=== PATIENT | female | born 1980 | race Caucasian/White ===

== ENCOUNTER 2020-02-20 09:57 | Outpatient (CLI) | payer OTHER, SELFPAY ==
[2020-02-20 10:14] LABS: Basophils Absolute Auto 0.02 K/mm3 (0.00-0.10); Basophils Percent Auto 0.5 % (0.0-1.0); Eosinophils Absolute Auto 0.06 K/mm3 (0.02-0.50); Eosinophils Percent Auto 1.4 % (1.0-6.0); Hematocrit 42.8 % (35.0-49.0); Hemoglobin 14.8 g/dL (12.0-15.0); Immature Granulocyte Absolute 0.01 K/mm3 (0.00-0.00); Immature Granulocyte Percent A 0.2 % (0.0-0.0); Lymphocytes Absolute Auto 2.14 K/mm3 (1.10-4.50); Lymphocytes Percent Auto 49.4 % (18.0-42.0); Mean Corpuscular HGB Conc 34.6 g/dL (32.0-36.0); Mean Corpuscular Volume 95.5 fL (78.0-102.0); Mean Platelet Volume 9.9 fl (9.2-11.8); Monocytes Absolute Auto 0.28 K/mm3 (0.10-0.90); Monocytes Percent Auto 6.5 % (2.0-11.0); Neutrophils Absolute Auto 1.8 K/mm3 (1.7-7.2); Platelet Count Result 218 K/mm3 (150-420); Red Blood Count 4.48 M/mm3 (4.20-5.40); Red Cell Distribution Width 11.9 % (11.6-14.4); White Blood Count 4.3 K/mm3 (4.8-10.8)
[2020-02-20 11:29] LABS: Free T4 Free Thyroxine 0.81 ng/dL (0.76-1.46); Lactate Dehydrogenase 180 U/L (81-234); Thyroid Stimulating Hormone 2.87 uIU/mL (0.36-3.74); Vitamin B12 1179 pg/mL (193-986)
[2020-02-22 22:04] LABS: Vitamin D 25 Hydroxy 37 ng/mL (30-100)
== END 2020-02-20 09:58 | disposition home or self-care (01) ==
LOC: CHSLAB 10:03
PROVIDERS: PCP Internal Medicine; Visit Provider Nurse Practitioner
DX: Z85.43 Personal history of malignant neoplasm of ovary (principal); R53.83 Other fatigue; E55.9 Vitamin D deficiency, unspecified
CPT/HCPCS: 36415; 82306; 82607; 83615; 84439; 84443; 85025

== ENCOUNTER 2020-04-30 14:53 | Outpatient (CLI) | payer OTHER, SELFPAY ==
[2020-04-30 16:32] LABS: SARS-CoV-2 Ag Negative (Negative)
== END 2020-04-30 14:54 | disposition home or self-care (01) ==
LOC: CHSLAB 14:58
PROVIDERS: PCP Internal Medicine; Visit Provider Internal Medicine
DX: Z20.828 Contact with and (suspected) exposure to other viral communicable diseases (principal)
CPT/HCPCS: 87426

== ENCOUNTER 2020-07-24 08:42 | Outpatient (CLI) | payer OTHER, SELFPAY ==
--- NOTE | ~2020-07-24 | CT_ITS ---
EXAMINATION: CT abdomen pelvis w con EXAM DATE: 07/24/2020 09:13 INDICATION: Abdominal pain. Check endometriosis. History of ovarian cancer with chemotherapy. TECHNIQUE: Spiral CT of the abdomen and pelvis was performed following intravenous injection of 100 m L Omnipaque 350. Axial, coronal and sagittal images were reviewed. The dose-length product (DLP) fo r this examination was 496.49 mGy-cm. The exposure was tailored according to patient size (auto mA e xposure control), and iterative reconstruction (ASIR) was used as additional dose reduction technique . Comparison is made to prior examination from 05/05/2019. FINDINGS: There is mild to moderate sigmoid diverticulosis. There is inflammation and mild wall thick ening along a short segment of sigmoid colon. This most likely acute uncomplicated diverticulitis. In flammatory cancer or endometriosis implants not excludable. Consider treating and obtaining one-month follow-up CT. The liver, spleen, adrenal glands and pancreas are unremarkable. Gallbladder is unremarkable. No bi liary obstruction. Portal and splenic veins are patent. Kidneys enhance symmetrically. There is no hydronephrosis. The uterus is retroverted and small density along the anterior myometrium, probabl y small fibroids. The bladder is unremarkable. There is no retroperitoneal or pelvic lymphadenopat hy. The appendix is normal. The stomach and small bowel are unremarkable. There is expected amount of c olonic stool. No free intraperitoneal gas. The heart is normal in size. There are no pericardial or pleural effusions. The lung bases are unremarkable. There are no osteoblastic or osteolytic les ions identified. IMPRESSION: 1. Perisigmoid inflammation most likely acute uncomplicated diverticulitis. Recommend treating and o btaining one-month follow-up to exclude less likely possibilities of adenocarcinoma or endometriosis implants. 2. No evidence of metastatic disease. 3. Probable small fibroid. I discussed this case with Matias Palacios MD at 07/24/2020 10:24 SENIOR QA AUTOMATION ENGINEER. Reviewed, dictated and finalized at location B. OR QA AUTOMATION ENGINEER IMPRESSION: 1. Perisigmoid inflammation most likely acute uncomplicated diverticulitis. Re commend treating and obtaining one-month follow-up to exclude less likely possi bilities of adenocarcinoma or endometriosis implants. 2. No evidence of metastatic disease. 3. Probable small fibroid. I discussed this case with Matias Palacios MD at 07/24/2020 10:24 SENIOR QA AUTOMATION ENGINEER.
== END 2020-07-24 08:43 | disposition home or self-care (01) ==
LOC: CHSIMG 08:43
PROVIDERS: PCP Internal Medicine; Visit Provider Internal Medicine
DX: R10.9 Unspecified abdominal pain (principal)
CPT/HCPCS: 74177; Q9967

== ENCOUNTER 2020-07-30 09:23 | Outpatient (CLI) | payer OTHER, SELFPAY ==
--- NOTE | ~2020-07-30 | US_ITS ---
EXAMINATION: US pelvic complete w TV EXAM DATE: 07/30/2020 10:55 INDICATION: Pelvic pain; post menopausal pain. TECHNIQUE: Pelvic transabdominal and transvaginal sonogram was performed. There are multiple graysca le and Doppler images available for interpretation. Comparison is made to prior examination from 05/05. FINDINGS: Uterus measures 5.3 x 3.1 x 4.5 cm, with several small regions probably fibroids measuring up to 1.1 cm. Endometrial stripe measures 3 mm, within normal limits. There is no free pelvic fluid . Right adnexa: The ovary is not identified. There is no adnexal mass. Left adnexa: The ovary measures 1.3 x 0.7 x 1.1 cm and is morphologically normal. Ovarian vascular fl ow confirmed. IMPRESSION: Probable small fibroids. Reviewed, dictated and finalized at location A. T BUYING GRADER IMPRESSION: Probable small fibroids.
== END 2020-07-30 09:24 | disposition home or self-care (01) ==
LOC: CHSIMG 09:25
PROVIDERS: PCP Internal Medicine; Visit Provider Nurse Practitioner
DX: N95.0 Postmenopausal bleeding (principal)
CPT/HCPCS: 76830; 76856

== ENCOUNTER → 2020-09-28 01:39 | Outpatient (CLI) | payer OTHER, SELFPAY ==
[2020-09-28 19:16] LABS: SARS-CoV-2 RNA PCR Negative
== END ==
PROVIDERS: PCP Internal Medicine; Visit Provider Internal Medicine Gastroenterology
DX: Z01.812 Encounter for preprocedural laboratory examination (principal); Z20.822 Contact with and (suspected) exposure to COVID-19
CPT/HCPCS: C9803; U0003; U0005

== ENCOUNTER 2020-10-01 00:31 | Day surgery (SDC) | payer OTHER, SELFPAY ==
[2020-09-18 15:57] VITALS: BMI 25.4
[2020-10-01 08:20] VITALS: BP 129/84; PULSE 74; RESP 16; TEMP 36.4; O2SAT 100; BMI 25.1
[2020-10-01] MEDS: LACTATED RINGERS 1,000 ML 150 ML IV CONT (08:44)
--- NOTE | 2020-10-01 08:55 | P.PNAN_ITS ---
Anes - Initial Pre Proc Eval Procedure: Operation Date: 10/01/20 09:45 Proposed Procedures p Colonoscopy - Andrade Guzmán MD Date/Time: 10/01/20 08:55 Surgeon: Andrade Guzmán MD Pre Op Diagnosis: abd pain, diarrhea, abn ct scan Patient Data Age: 40 Gender: F Height: 1.6 m Weight: 64.4 kg Last Vital Signs Temp 36.4 C 10/01/20 08:20 Pulse 74 10/01/20 08:20 Resp 16 10/01/20 08:20 BP 129/84 10/01/20 08:20 Pulse Ox 100 10/01/20 08:20 Allergies Allergy/AdvReac Type Severity Reaction Status Date / Time propoxyphene AdvReac Intermediate Vomiting Verified 10/01/20 08:18 [facility] Home Medications Medication Instructions Recorded Confirmed Type Daily Fiber (psyllium-aspart) 5 tab-cap PO DAILY 09/18/20 10/01/20 History ergocalciferol (vitamin D2) 1,250 mcg PO WE 09/18/20 10/01/20 History estradiol [Estrace] 1 mg PO DAILY 09/18/20 10/01/20 History medroxyprogesterone [Provera] 2.5 mg PO DAILY 09/18/20 10/01/20 History montelukast [Singulair] 10 mg PO DAILY 09/18/20 10/01/20 History pantoprazole [Protonix] 40 mg PO DAILY 09/18/20 10/01/20 History paroxetine HCl [Paxil] 10 mg PO DAILY 09/18/20 10/01/20 History Patient hx anesthesia problems: none Family hx anesthesia problems: none [facility] Past Medical History Medical History (Updated 09/30/20 @ 10:50 by Live Reich DO) Diverticulitis History of ovarian cancer Surgical History Surgical History (Updated 09/30/20 @ 10:50 by Live Reich DO) S/P removal of right ovary Social History Social History Substance use type: does not use Living arrangements: with family Gender identity (if verbalized by the patient): Female Sexual Orientation (if Verbalized by the Patient): Straight or Heterosexual Spiritual care concerns: No Anes - Eval Final PreProcedure Day of Procedure 10/01/20 08:55 Patient weight: overweight Heart: regular rate and rhythm Lungs: clear to auscultation and normal air movement Airway: Mallampati scale class II Neurological: alert and oriented Last oral intake: >/= 8 hours ASA classification: II Emergent: no Anesthetic plan: proceed Anesthesia type and monitoring: general GIVS and standard monitoring Informed Consent: The patient's anesthetic plan and its attendant risks and benefits were discussed with the patient/family/POA. Questions were solicited and answers provided to the satisfaction of the patient/family/POA.
--- NOTE | 2020-10-01 09:17 | PM.HPGS ---
History of Present Illness History of Present Illness Consent: Risks, benefits, and alternatives have been discussed and questions answered. Patient agrees to proceed with procedure. Chief complaint: abd pain, diarrhea, abn ct scan Narrative: Ama Armstrong is a 40 year old female with sigmoid diverticulitis few months ago, never had colonoscopy. Also grandparent and aunt with colon cancer. Review of Systems Constitutional: Constitutional: Denies headache(s) and Denies weakness Eyes: Eyes: Denies blurry vision ENT: Reports Normal hearing present, Denies headache(s) and Denies neck pain Cardiovascular: Cardiovascular: Denies chest pain and Denies dyspnea Respiratory: Respiratory: Denies dyspnea Gastrointestinal: Gastrointestinal: Reports no additional gastrointestinal complaints Genitourinary: Genitourinary: Denies dysuria Musculoskeletal: Musculoskeletal: Denies neck pain Integumentary/Breasts: Skin/Breast: Denies dry skin Neurologic: Reports Normal hearing present, Denies headache(s) and Denies weakness Psychiatric: Psychiatric: Denies anxiety Endocrine: Endocrine: Denies change in body appearance Hematologic/Lymphatic: Hematologic/Lymphatic: Denies easy bleeding Allergic/Immunologic: Allergic/Immunologic: Denies urticaria PMFSH Past Medical History Medical History (Updated 10/01/20 @ 09:18 by Andrade Guzmán MD) Diverticulitis History of ovarian cancer Surgical History Surgical History (Updated 09/30/20 @ 10:50 by Live Reich DO) S/P removal of right ovary Social History Social History Substance use type: does not use Living arrangements: with family Gender identity (if verbalized by the patient): Female Sexual Orientation (if Verbalized by the Patient): Straight or Heterosexual Spiritual care concerns: No Meds Home Medications and Allergies Home Medications Medication Instructions Recorded Confirmed Type Daily Fiber (psyllium-aspart) 5 tab-cap PO DAILY 09/18/20 10/01/20 History ergocalciferol (vitamin D2) 1,250 mcg PO WE 09/18/20 10/01/20 History estradiol [Estrace] 1 mg PO DAILY 09/18/20 10/01/20 History medroxyprogesterone [Provera] 2.5 mg PO DAILY 09/18/20 10/01/20 History montelukast [Singulair] 10 mg PO DAILY 09/18/20 10/01/20 History pantoprazole [Protonix] 40 mg PO DAILY 09/18/20 10/01/20 History paroxetine HCl [Paxil] 10 mg PO DAILY 09/18/20 10/01/20 History Allergies Allergy/AdvReac Type Severity Reaction Status Date / Time propoxyphene AdvReac Intermediate Vomiting [facility]/01[facility]20 [facility] Vital Signs Vital Signs - 24 hr 10/01/20 08:20 Temperature 97.6 F Pulse Rate 74 Respiratory Rate 16 Blood Pressure 129/84 Pulse Oximetry 100 Exam Const: General: comfortable and no acute distress HENMT: General nose exam: Normal nares present Eyes: General: appearance normal, both eyes and all related structures Neck: Neck: no JVD Resp: Auscultation: clear to auscultation bilaterally Cardio: Rate: regular rate Rhythm: regular rhythm GI: Inspection: non-distended GI Palp: Yes Soft to palpation Skin: General skin exam: normal color Neuro: General: gait normal Speech: normal speech Extrem: General: normal to inspection Psych: Mental Status: mental status grossly normal Assessment and Plan Assessment and plan (1) Diverticulitis: Code(s): K57.92 - Diverticulitis of intestine, part unspecified, without perforation or abscess without bleeding Status: Inactive Assessment and Plan: asymptomatic but needs colonoscopy (2) History of ovarian cancer: Code(s): Z85.43 - Personal history of malignant neoplasm of ovary Status: Acute
[2020-10-01 09:37] VITALS: BP 80/48; PULSE 90; RESP 20; O2SAT 98
[2020-10-01 09:47] VITALS: BP 89/51; PULSE 70; RESP 22; O2SAT 100
[2020-10-01 09:57] VITALS: BP 92/57; PULSE 52; RESP 20; O2SAT 100
[2020-10-01 10:07] VITALS: BP 100/60; PULSE 50; RESP 18; O2SAT 100
== END 2020-10-01 10:19 | disposition home or self-care (01) ==
PROVIDERS: PCP Internal Medicine; Visit Provider Internal Medicine Gastroenterology
PROC: 0DJD8ZZ Inspection of Lower Intestinal Tract, Via Natural or Artificial Opening Endoscopic (ICD-10-PCS; CPT 45378; principal; 2020-10-01 09:45)
DX: K57.32 Diverticulitis of large intestine without perforation or abscess without bleeding (principal); Z80.0 Family history of malignant neoplasm of digestive organs; K64.8 Other hemorrhoids; R19.7 Diarrhea, unspecified; R10.9 Unspecified abdominal pain; Z85.43 Personal history of malignant neoplasm of ovary
CPT/HCPCS: 45378; C9803; J2704; J7120; U0003; U0005

== ENCOUNTER 2021-02-18 08:08 | Outpatient (CLI) | payer OTHER, SELFPAY ==
--- NOTE | ~2021-02-18 | XR_ITS ---
EXAMINATION: XR lumbar spine 2-3V DATE: 02/18/2021 08:37 INDICATION: Left hip and back pain TECHNIQUE: Anteroposterior and lateral views of the lumbar spine, and cone-down lateral view of the l umbosacral junction were obtained. COMPARISON: 03/04/2011 FINDINGS: There are 2 mm of stable retrolisthesis of L5 on S1. The vertebral body heights and interve rtebral disc spaces are maintained. There is no fracture. IMPRESSION: 1. Mild lumbar spondylosis without acute findings or significant interval change. Reviewed, dictated and finalized at location A. IMPRESSION: 1. Mild lumbar spondylosis without acute findings or significant interval velazquez dvain
--- NOTE | ~2021-02-18 | XR_ITS ---
XR hip LT min 2V 02/18/2021 08:37 Indication: Left hip pain Procedure: 2 views left hip Comparison: 03/04/2011 Findings: No fracture, subluxation or dislocation. There is anatomic alignment. No significant soft t issue abnormality. No foreign bodies. Impression: 1: No significant bone or joint abnormality. Reviewed, dictated and finalized at location A. Impression: 1: No significant bone or joint abnormality.
--- NOTE | ~2021-02-18 | XR_ITS ---
XR knee LT 3V 02/18/2021 08:37 Indication: Left knee pain Procedure: 3 views left knee Comparison: No prior studies for comparison. Findings: No fracture, subluxation or dislocation. No significant effusion. No joint space narrowing. There is anatomic alignment. Impression: 1: No significant bone or joint abnormality. Reviewed, dictated and finalized at location A. Impression: 1: No significant bone or joint abnormality.
== END 2021-02-18 08:09 | disposition home or self-care (01) ==
LOC: CHSIMG 08:10
PROVIDERS: PCP Internal Medicine; Visit Provider Internal Medicine
DX: M25.552 Pain in left hip (principal); M25.562 Pain in left knee
CPT/HCPCS: 72100; 73502; 73562

== ENCOUNTER 2022-06-16 09:27 | Outpatient (CLI) | payer OTHER, SELFPAY ==
[2022-06-16 09:57] LABS: Basophils Absolute Auto 0.02 K/mm3 (0.00-0.10); Basophils Percent Auto 0.4 % (0.0-1.0); Eosinophils Absolute Auto 0.06 K/mm3 (0.02-0.50); Eosinophils Percent Auto 1.3 % (1.0-6.0); Hematocrit 42.3 % (35.0-49.0); Hemoglobin 14.4 g/dL (12.0-15.0); Immature Granulocyte Absolute 0.01 K/mm3 (0.00-0.00); Immature Granulocyte Percent A 0.2 % (0.0-0.0); Lymphocytes Absolute Auto 1.91 K/mm3 (1.10-4.50); Lymphocytes Percent Auto 39.8 % (18.0-42.0); Mean Corpuscular Hemoglobin 32.5 pg (27.0-31.0); Mean Corpuscular Volume 95.5 fL (78.0-102.0); Mean Platelet Volume 9.7 fl (9.2-11.8); Monocytes Absolute Auto 0.36 K/mm3 (0.10-0.90); Monocytes Percent Auto 7.5 % (2.0-11.0); Neutrophils Absolute Auto 2.4 K/mm3 (1.7-7.2); Neutrophils Percent Auto 50.8 % (50.0-70.0); Platelet Count Result 217 K/mm3 (150-420); Red Blood Count 4.43 M/mm3 (4.20-5.40); Red Cell Distribution Width 11.9 % (11.6-14.4); White Blood Count 4.8 K/mm3 (4.8-10.8)
[2022-06-16 10:36] LABS: Add Urine Microscopic? NO; Appearance Urine Clear (Clear); Bilirubin Urine Negative (Negative); Blood Urine Negative (Negative); Color Urine Yellow (Yellow); Glucose Urine UA Negative (Negative); Ketones Urine Negative (Negative); Leukocyte Esterase Ur Negative (Negative); Nitrate Urine Negative (Negative); Protein Urine Negative (Negative); Specific Grav Ur 1.025 (1.010-1.020); Urobilinogen Urine 0.2 mg/dL (0.2-1.0)
[2022-06-16 10:54] LABS: Alanine Aminotransferase 26 U/L (14-59); Alkaline Phosphatase 70 U/L (46-116); Anion Gap 6 mmol/L (8-16); Aspartate Amino Transferase 19 U/L (15-37); Bilirubin,Total 0.5 mg/dL (0.00-1.00); Blood Urea Nitrogen 16 mg/dL (7-18); Calcium 9.1 mg/dL (8.5-10.1); Carbon Dioxide 30 mmol/L (21-32); Chloride 103 mmol/L (98-108); Cholesterol 187 mg/dL (0-200); Estimated Glomerular Filt Rate > 60; Glucose 93 mg/dL (70-99); HDL Direct 63 mg/dL (40-60); LDL Cholesterol Calculated 111 mg/dL (<130); Lactate Dehydrogenase 194 U/L (81-234); Osmolality Calculated 289 mOsm/kg (285-295); Sodium 139 mmol/L (136-145); Thyroid Stimulating Hormone 2.65 uIU/mL (0.36-3.74); Triglycerides 63 mg/dL (0-150)
[2022-06-16 10:56] LABS: CRP < 0.5 mg/dL (0.0-0.9)
[2022-06-18 16:57] LABS: Vitamin D 25 Hydroxy 53 ng/mL (30-100)
== END 2022-06-16 09:28 | disposition home or self-care (01) ==
LOC: CHSLAB 09:30
PROVIDERS: PCP Internal Medicine; Visit Provider Nurse Practitioner
DX: G56.00 Carpal tunnel syndrome, unspecified upper limb (principal); E55.9 Vitamin D deficiency, unspecified; M79.89 Other specified soft tissue disorders
CPT/HCPCS: 36415; 80053; 80061; 81003; 82306; 83615; 84443; 85025; 86140

== ENCOUNTER 2022-06-22 08:59 | Outpatient (CLI) | payer OTHER, SELFPAY ==
--- NOTE | ~2022-06-22 | US_ITS ---
Pelvic ultrasound. Clinical History: Postmenopausal bleeding Technique: Realtime transabdominal and transvaginal scanning of the pelvis was performed. Color flow Doppler and Doppler spectral analysis were performed. Findings: The uterus is retroverted. The endometrial stripe has a thickness of 3 mm. Probable small ill-defined fibroid measures 1 cm in diameter. The right ovary is absent, compatible with history of right oophorectomy No significant right ovarian or adnexal mass is seen. The left ovary measures 1.6 x 1.0 x 1.6 cm. No significant left ovarian or adnexal mass is seen. Vas cular flow present in the left ovary on Doppler spectral analysis. There is no evidence of free fluid in the cul de sac. Impression: No abnormal endometrial thickening. Left ovary unremarkable. Status post prior right oophorectomy. Small uterine fibroid, as above. Reviewed, dictated and finalized at [facility]. NING INSTRUCTOR Impression: No abnormal endometrial thickening. Left ovary unremarkable. Status post prior right oophorectomy. Small uterine fibroid, as above.
== END 2022-06-22 09:00 | disposition home or self-care (01) ==
LOC: CHSIMG 09:03
PROVIDERS: PCP Internal Medicine; Visit Provider Nurse Practitioner
DX: N95.0 Postmenopausal bleeding (principal); D25.9 Leiomyoma of uterus, unspecified
CPT/HCPCS: 76830; 76856

== ENCOUNTER 2022-06-28 12:45 | Emergency (ER) | payer OTHER, SELFPAY ==
[2022-06-28 13:01] VITALS: BP 131/87; PULSE 81; RESP 16; TEMP 37.3; O2SAT 100
--- NOTE | 2022-06-28 13:41 | ED.EYEPROB ---
HPI - Eye Problem General Chief complaint: Eye Problems Stated complaint: EYE SWELLING Time Seen by Provider: 06/28/22 13:02 Source: patient Mode of arrival: ambulatory Limitations: no limitations History of Present Illness HPI Narrative: Patient presents today complaining 3-4 day history of left eye redness, pressure and pain, clear drainage, photophobia. Associated symptoms include sinus pressure and congestion. She was seen at an urgent care in [place] 2 days ago where she was put on doxycycline and and Polytrim eyedrops. States symptoms have not improved. Denies floaters. Currently rates her eye pain 01/07. Related Data Home Medications Medication Instructions Recorded Confirmed ergocalciferol (vitamin D2) 1,250 1,250 mcg PO WE 09/18/20 06/28/22 mcg (50,000 unit) capsule estradiol 1 mg tablet (Estrace) 1 mg PO DAILY 09/18/20 06/28/22 medroxyprogesterone 2.5 mg tablet 2.5 mg PO DAILY 09/18/20 06/28/22 (Provera) pantoprazole 40 mg tablet,delayed 40 mg PO DAILY 09/18/20 06/28/22 release (Protonix) doxycycline monohydrate 100 mg 100 mg PO BID 06/28/22 06/28/22 capsule polymyxin B sulfate 10,000 1 drp LEFT EYE USEASDIRECTD 06/28/22 06/28/22 unit-trimethoprim 1 mg/mL eye drops Allergies Allergy/AdvReac Type Severity Reaction Status Date / Time propoxyphene AdvReac Intermediate Vomiting Verified 06/28/22 12:57 [From Luci] Review of Systems Review of Systems: CONSTITUTIONAL: Denies body aches, fever, chills, or sweats. EYES: + left eye pain, redness, photophobia, watery drainage ENT: Denies rhinorrhea, congestion, sore throat, or otalgia. CARDIOVASCULAR: Denies chest pain, palpitations, or edema. RESPIRATORY: Denies cough or dyspnea. GASTROINTESTINAL: Denies abdominal pain, nausea, vomiting, or diarrhea. GENITOURINARY: Denies dysuria or hematuria. SKIN: Denies rash, itching, or wounds. MUSCULOSKELETAL: Denies back pain, joint pain, or myalgia. NEUROLOGIC: Denies headache, numbness, tingling, or weakness. PSYCH: Denies depression or anxiety. [facility] Past Medical History Medical History Diverticulitis History of ovarian cancer Surgical History Surgical History S/P removal of right ovary Social History Social History Substance use type: does not use Living arrangements: with family Gender identity (if verbalized by the patient): Female Sexual Orientation (if Verbalized by the Patient): Straight or Heterosexual Spiritual care concerns: No Comments At time of signature, I have reviewed and agree with nursing past medical, surgical, social and family history unless otherwise noted. Please see nursing chart for further information. There is no relevant family history pertinent to the presenting complaint Exam Narrative: GENERAL: Mildly ill-appearing, well-nourished, and in no acute distress. HEAD: Normocephalic, atraumatic. EYES: EOMI. PERRL bilaterally. Right eye normal. Left eye: Moderately injected conjunctiva. Upper and lower eyelids mildly swollen. Lashes normal. Decreased hearing. Photophobia. No fluorescein uptake with staining. ENT: Mucous membranes pink and moist. NECK: Normal AROM. CHEST: No respiratory distress. EXTREMITIES: Normal range of motion. No edema. SKIN: Warm, dry, no rash. Capillary refill normal. Normal skin turgor. NEURO: No focal deficits. Alert and oriented x3. Gait steady. PSYCH: Normal affect. No signs of depression or anxiety. Course Course Level of Care: Express Care Visit Vital Signs Vital signs: Vital Signs Temperature 99.2 F 06/28/22 13:01 Pulse Rate 81 06/28/22 13:01 Respiratory Rate 16 06/28/22 13:01 Blood Pressure 131/87 06/28/22 13:01 Pulse Oximetry 100 06/28/22 13:01 Temperature 99.2 F 06/28/22 13:01 Pulse R
== END 2022-06-28 13:45 | disposition short-term general hospital (02) ==
PROVIDERS: Emergency Provider Nurse Practitioner; PCP Internal Medicine
DX: H57.12 Ocular pain, left eye (principal); H53.8 Other visual disturbances; Z85.43 Personal history of malignant neoplasm of ovary
CPT/HCPCS: 99213; A9270; G0463

== ENCOUNTER 2022-07-03 14:37 | Outpatient (CLI) | payer OTHER, SELFPAY ==
[2022-07-03 15:33] LABS: Influenza A QL RT-PCR Negative (Negative); Influenza B QL RT-PCR Negative (Negative)
== END 2022-07-03 14:38 | disposition home or self-care (01) ==
LOC: CHSLAB 14:40
PROVIDERS: PCP Internal Medicine; Visit Provider Internal Medicine
DX: J06.9 Acute upper respiratory infection, unspecified (principal)
CPT/HCPCS: 87502

== ENCOUNTER 2022-10-23 17:42 | Emergency (ER) | payer OTHER, SELFPAY ==
--- NOTE | ~2022-10-23 | XR_ITS ---
EXAMINATION: XR foot LT min 3V DATE: 10/23/2022 18:11 INDICATION: Left foot pain. Fall. TECHNIQUE: 4 views of left foot were obtained. COMPARISON: None. FINDINGS: Bone alignment is normal. There is a chip fracture of anterolateral aspect of calcaneus. Sharee int spaces are normal. IMPRESSION: 1. Chip fracture of anterior process of calcaneus. Reviewed, dictated and finalized at location E.
--- NOTE | ~2022-10-23 | XR_ITS ---
EXAMINATION: XR ankle LT min 3V DATE: 10/23/2022 18:11 INDICATION: Left ankle pain. Fall. TECHNIQUE: 4 views of left ankle were obtained. COMPARISON: None. FINDINGS: Bone alignment is normal. No fracture. Joint spaces are normal. IMPRESSION: 1. No fracture. Reviewed, dictated and finalized at location E. IMPRESSION: 1. No fracture.
[2022-10-23 17:42] VITALS: BP 140/90; PULSE 83; RESP 18; TEMP 37; O2SAT 100
--- NOTE | 2022-10-23 17:48 | ED.GENADULT ---
HPI - General Adult General Chief complaint: Extremity Injury, Lower Stated complaint: left ankle pain Time Seen by Provider: 10/23/22 17:47 History of Present Illness HPI narrative: The patient is a 42-year-old woman who was getting out of car or by she slipped and fell, landing on her left ankle, spraining her left ankle, hearing a cracking sound. She also struck the posterior aspect of her head on the concrete. No loss of consciousness. No nausea vomiting. No motor sensory deficits. Does have pain at the left ankle and proximal left foot laterally with swelling and tenderness at the site. No other injuries of the upper or lower extremities. No lacerations or abrasions. Related Data Home Medications Medication Instructions Recorded Confirmed ergocalciferol (vitamin D2) 1,250 1,250 mcg PO WE 09/18/20 10/23/22 mcg (50,000 unit) capsule estradiol 1 mg tablet (Estrace) 1 mg PO DAILY 09/18/20 10/23/22 medroxyprogesterone 2.5 mg tablet 2.5 mg PO DAILY 09/18/20 10/23/22 (Provera) pantoprazole 40 mg tablet,delayed 40 mg PO DAILY 09/18/20 10/23/22 release (Protonix) paroxetine mesylate(menop.sym) 7.5 10 mg PO DAILY 10/23/22 10/23/22 mg capsule Allergies Allergy/AdvReac Type Severity Reaction Status Date / Time propoxyphene AdvReac Intermediate Vomiting Verified 06/28/22 12:57 [From Sarah-Rajesh] Review of Systems Review of Systems: All systems reviewed & are unremarkable except as noted in HPI and below Constitutional: Constitutional: Denies chills, Denies excessive sweating, Denies fatigue, Denies fever(s), Denies headache(s) and Denies weakness Eyes: Eyes: Denies change in vision and Denies photophobia ENT: Denies dysphagia, Denies dizziness, Denies headache(s), Denies lip swelling, Denies nasal congestion, Denies sore throat and Denies tongue swelling Cardiovascular: Cardiovascular: Denies chest pain, Denies syncope, Denies rapid heart rate and Denies dyspnea Respiratory: Respiratory: Denies cough, Denies dyspnea and Denies wheezing Gastrointestinal: Gastrointestinal: Denies abdominal pain, Denies constipation, Denies dysphagia, Denies diarrhea, Denies nausea and Denies vomiting Genitourinary: Genitourinary: Denies hematuria, Denies urinary frequency, Denies dysuria and Denies urinary urgency Musculoskeletal: Musculoskeletal: Denies back pain, Denies myalgias, Reports arthralgias (left ankle), Reports joint swelling (left ankle) and Denies numbness Integumentary/Breasts: Skin/Breast: Denies pruritus, Denies erythema and Denies rash Neurologic: Denies confusion, Denies dizziness, Denies syncope, Denies headache(s), Denies focal weakness, Denies numbness and Denies weakness Psychiatric: Psychiatric: Denies anxiety and Denies confusion Endocrine: Endocrine: Denies excessive sweating and Denies fatigue Hematologic/Lymphatic: Hematologic/Lymphatic: Denies easy bleeding and Denies easy bruising Allergic/Immunologic: Allergic/Immunologic: Denies lip swelling, Denies tongue swelling and Denies wheezing PMFSH Past Medical History Medical History Diverticulitis History of ovarian cancer Surgical History Surgical History S/P removal of right ovary Social History Social History Substance use type: does not use Living arrangements: with family Gender identity (if verbalized by the patient): Female Sexual Orientation (if Verbalized by the Patient): Straight or Heterosexual Spiritual care concerns: No Exam Const: General: healthy appearing, no acute distress, alert and well nourished Nutritional Appearance: well nourished Orientation/consciousness: patient oriented x3 Limitations: no limitations HENMT: Head: normal to inspection Ears: external ears normal Face/Nose/Sinus: normal facial exam Face and sinus: normal facial exam Mo
[2022-10-23] MEDS: ACETAMINOPHEN 500 MG TABLET 1000 MG PO (18:03)
[2022-10-23] MEDS: IBUPROFEN 400 MG TABLET 800 MG PO (18:05)
[2022-10-23 19:11] VITALS: BP 133/93; PULSE 87; RESP 18; TEMP 37.2; O2SAT 100
== END 2022-10-23 19:18 | disposition home or self-care (01) ==
PROVIDERS: Emergency Provider Emergency Medicine; PCP Internal Medicine
DX: S92.002A Unspecified fracture of left calcaneus, initial encounter for closed fracture (principal); S93.402A Sprain of unspecified ligament of left ankle, initial encounter; W01.0XXA Fall on same level from slipping, tripping and stumbling without subsequent striking against object, initial encounter; Z85.43 Personal history of malignant neoplasm of ovary
CPT/HCPCS: 73610; 73630; 99284; A9270

== ENCOUNTER 2024-01-27 11:31 | Outpatient (CLI) | payer OTHER, SELFPAY ==
--- NOTE | ~2024-01-27 | XR_ITS ---
EXAMINATION: XR ribs LT 2V w CXR 2V DATE: 01/27/2024 12:02 INDICATION: Posterior chest injury. TECHNIQUE: Frontal and lateral views of the chest and 2 views on 3 radiographs of the left ribs were obtained. COMPARISON: Chest single view 04/01/21 FINDINGS: CHEST TWO VIEWS: There is no pneumonia, pleural effusion, or pneumothorax. The heart size is normal. LEFT RIBS: There is no rib fracture. IMPRESSION: 1. No rib fracture. Reviewed, dictated and finalized at location A. IMPRESSION: 1. No rib fracture.
== END 2024-01-27 11:32 | disposition home or self-care (01) ==
LOC: CHSIMG 11:40
PROVIDERS: PCP Internal Medicine; Visit Provider Internal Medicine
DX: R07.89 Other chest pain (principal)
CPT/HCPCS: 71046; 71100

== ENCOUNTER 2024-02-14 08:20 | Outpatient (CLI) | payer OTHER, SELFPAY ==
--- NOTE | 2024-02-14 08:28 | ECG_ITS ---
Test Date: 2024-02-14 08:36:54 Measurements Intervals [place] Rate: 64 P: 75 IL: 146 QRS: 83 QRSD: 84 T: 57 QT: 376 QTc: 390 Interpretive Statements SINUS RHYTHM WITH SINUS ARRHYTHMIA NORMAL ECG No previous ECG available for comparison Electronically Signed On 02-14-2024 08:57:52 CDT by Juan Chow D.O.
== END 2024-02-14 08:21 | disposition home or self-care (01) ==
PROVIDERS: PCP Internal Medicine; Visit Provider Internal Medicine
DX: R94.31 Abnormal electrocardiogram [ECG] [EKG] (principal)
CPT/HCPCS: 93005

== ENCOUNTER 2025-02-07 08:38 | Outpatient (CLI) | payer OTHER, SELFPAY ==
--- NOTE | ~2025-02-07 | MM_ITS ---
EXAMINATION: MM screening radha BI w darlene HISTORY: Screening TECHNIQUE: Craniocaudal and mediolateral oblique 3-D tomosynthesis images were obtained and synthetic 2-D images were generated. CAD analysis was submitted and interpreted. COMPARISON: 04/16/2016 BREAST PARENCHYMAL COMPOSITION: The breasts are heterogeneously dense, which may obscure small masses. FINDINGS: There is no evidence of suspicious mass, calcification, or architectural distortion to suggest malignancy in either breast. IMPRESSION: 1. No mammographic evidence of malignancy. 2. Recommend routine screening mammography in one year. BI-RADS Category 1: Negative Reviewed, dictated and finalized at location B.
--- OUTSIDE RECORDS SUMMARY | 2025-02-07 09:07 | XMS_ITS | Clinical Summary ---
Author Organization [facility] Address [address] [place] [address] Care Team Providers Care Technology Methodology Consultant Name Role Phone Matias Palacios MD Primary Care Provider [phone] Allergies No known active allergies Medications No known medications Active Problems Problem Noted Date Diagnosed Date Cellulitis of L eye 06/28/2022 Assessment & Plan (06/28/2022 10:00 PM CHILD CARE CENTRE MANAGER): Pt p/w 3 days of decreased vision in L eye (20/60), pain w/ EOM, and photosensitivity. Denies any fevers or infectious symptoms. CT orbits 06/28 noting R maxillary mucosal thickening, however no explanations for pt's L eye symptoms. Given acute onset, visual changes, and pain w/ EOM c/f orbital cellulitis.Denies any prior MRSA infections. ESR/CRP wnl. - IV unasyn (06/28 - ) - MRSA swab - Optho consulted, serial eye exams - If vision loss progressing w/o clear explanation for visual symptoms, consider MRI orbits w/ w/o contrast GERD (gastroesophageal reflux disease) Assessment & Plan (06/28/2022 9:38 PM CHILD CARE CENTRE MANAGER): On home PPI PRN Hx of ovarian cancer 06/28/2022 Assessment & Plan (06/28/2022 9:39 PM CHILD CARE CENTRE MANAGER): Hx of ovarian CA dx'd at age 13 s/p R oophorectomy c/b early menopause. - On home progesterone/Estrogen Adenovirus infection 06/28/2022 Assessment & Plan (06/28/2022 9:43 PM CHILD CARE CENTRE MANAGER): Resulting in sinusitis. Swabbed + for adenovirus 06/28/22. P/w Sinus pressure and WRIGHT's. - Droplet precuations Hot flashes due to menopause 06/28/2022 Assessment & Plan (06/29/2022 11:12 AM CHILD CARE CENTRE MANAGER): On home paroxetine. Does not remember dose, will have her call to confirm dose. Social History Tobacco Use Types Packs/Day Years Used Date Smoking Tobacco: Never Passive Smoke Exposure: Never Tobacco Cessation:Counseling Given: Not Answered Personal Safety Answer Date Recorded Getting School Help Needed Not on file 07/25 Comments No Sex and Gender Information Value Date Recorded Sex Assigned at Not on file Legal Sex Female 8:42 PM CHILD CARE CENTRE MANAGER Gender Identity Not on file Sexual Orientation Not on file Obstetrics History Last Filed Vital Signs Vital Sign Reading Time Taken Comments Blood Pressure 111/71 06/29/2022 8:08 AM CHILD CARE CENTRE MANAGER Pulse 69 06/29/2022 8:08 AM CHILD CARE CENTRE MANAGER Temperature 36.6 C (97.9 F) 06/29/2022 8:08 AM CHILD CARE CENTRE MANAGER Respiratory Rate 16 06/29/2022 8:08 AM CHILD CARE CENTRE MANAGER Oxygen Saturation 93% 06/29/2022 8:08 AM CHILD CARE CENTRE MANAGER Inhaled Oxygen Concentration - - Weight 74.8 kg (164 lb 14.4 oz) 023 10:23 PM CHILD CARE CENTRE MANAGER Height 160 cm (5' 3) 06/28/2022 10:23 PM CHILD CARE CENTRE MANAGER Body Mass Index 29.21 06/28/2022 10:23 PM CHILD CARE CENTRE MANAGER Plan of Treatment Health Maintenance Due Date Last Done Comments Breast Cancer Screening-Mammogram 1982 Cervical Cancer Screening 1982 Depression Screening 1982 Hepatitis C Screening 1982 Varicella Vaccines (1 of 2 - 13+ 2-dose series) 08/28/1995 Hepatitis B Screening 2000 Regular Well Visit/Exam 18-64 2000 HPV Vaccines (1 - 3-dose SCD M series) 2009 Covid-19 Vaccine (2023-2 5 season) 2024 06/09/2021, 10/08/2020, 09/10/2020 Influenza Vaccine (#1) 2025 02/05/2017 DTaP/Tdap/Td Vaccine (2 - Td or Tdap) 09/23/2031 09/22/2021 Pneumococcal vaccine <65 Aged Out No longer eligible based on patient's age to complete this topic Insurance [facility] Address: [address] [address] [facility] Address: [id number] [place] [address] Advance Directives For more information, please contact: [phone] * Full Code (Latest Code Status on File) Date Activated Date Inactivated Comments 06/28/2022 10:22 PM 06/29/2022 8:04 PM Care Teams Technology Methodology Consultant Relationship Specialty Start Date End Date Matias Palacios MD PCP - General Internal Medicine 06/29/22
== END 2025-02-07 08:39 | disposition home or self-care (01) ==
PROVIDERS: PCP Internal Medicine; Visit Provider Obstetrics & Gynecology
DX: Z12.31 Encounter for screening mammogram for malignant neoplasm of breast (principal)
CPT/HCPCS: 77063; 77067

== ENCOUNTER 2025-03-20 08:49 | Outpatient (CLI) | payer OTHER, SELFPAY ==
--- NOTE | ~2025-03-20 | US_ITS ---
EXAMINATION: US pelvic complete w TV INDICATION: Preop hysterectomy Comparison:No prior studies for comparison. TECHNIQUE: Multiple transabdominal and endovaginal sonographic images of the pelvis performed. FINDINGS: The uterus measures 5.5 x 3.5 x 2 cm. There is a small uterine fibroid measuring 1 cm. Endometrium measures 6 mm. The endometrial complex measures . The right ovary is surgically absent. Left ovary is normal measuring 1.4 x 1.1 x 1.1 cm. There is no free fluid in the pelvis. There are no abnormal masses seen on either side. IMPRESSION: 1. Small 1 cm uterine fibroid. Reviewed, dictated and finalized at location O.
--- OUTSIDE RECORDS SUMMARY | 2025-03-20 09:30 | XMS_ITS | Clinical Summary ---
Author Organization [facility] Address [address] [place] [address] Care Team Providers Care Vice President Quality Assurance Name Role Phone Matias Palacios MD Primary Care Provider [phone] Allergies No known active allergies Medications No known medications Active Problems Problem Noted Date Diagnosed Date Cellulitis of L eye 06/28/2022 Assessment & Plan (06/28/2022 10:00 PM DIRECTOR PUBLIC): Pt p/w 3 days of decreased vision [...] disease) Assessment & Plan (06/28/2022 9:38 PM DIRECTOR PUBLIC): On home PPI PRN Hx of ovarian cancer 06/28/2022 Assessment & Plan (06/28/2022 9:39 PM DIRECTOR PUBLIC): Hx of ovarian CA dx'd at age 13 s/p R oophorectomy c/b early menopause. - On home progesterone/Estrogen Adenovirus infection 06/28/2022 Assessment & Plan (06/28/2022 9:43 PM DIRECTOR PUBLIC): Resulting in sinusitis. Swabbed + for adenovirus 06/28/22. P/w Sinus pressure and WRIGHT's. - Droplet precuations Hot flashes due to menopause 06/28/2022 Assessment & Plan (06/29/2022 11:12 AM DIRECTOR PUBLIC): On home paroxetine. Does not remember dose, [...] on file Legal Sex Female 8:42 PM DIRECTOR PUBLIC Gender Identity Not on file Sexual Orientation Not on file Obstetrics History Last Filed Vital Signs Vital Sign Reading Time Taken Comments Blood Pressure 111/71 06/29/2022 8:08 AM DIRECTOR PUBLIC Pulse 69 06/29/2022 8:08 AM DIRECTOR PUBLIC Temperature 36.6 C (97.9 F) 06/29/2022 8:08 AM DIRECTOR PUBLIC Respiratory Rate 16 06/29/2022 8:08 AM DIRECTOR PUBLIC Oxygen Saturation 93% 06/29/2022 8:08 AM DIRECTOR PUBLIC Inhaled Oxygen Concentration - - Weight 74.8 kg (164 lb 14.4 oz) 023 10:23 PM DIRECTOR PUBLIC Height 160 cm (5' 3) 06/28/2022 10:23 PM DIRECTOR PUBLIC Body Mass Index 29.21 06/28/2022 10:23 PM DIRECTOR PUBLIC Plan of Treatment Health Maintenance Due Date Last Done Comments Breast Cancer Screening-Mammogram 1982 Cervical Cancer Screening 1982 Depression Screening 1982 Hepatitis C Screening 1982 Varicella Vaccines (1 of 2 - 13+ 2-dose series) 08/28/1995 Hepatitis B Screening 2000 Regular Well Visit/Exam 18-64 2000 HPV Vaccines (1 - 3-dose SCD M series) 2009 Covid-19 Vaccine (2024-2 6 season) 2025 06/09/2021, 10/08/2020, 09/10/2020 Influenza Vaccine (#1) 2025 02/05/2017 DTaP/Tdap/Td Vaccine (2 - Td or Tdap) 09/23/2031 09/22/2021 Pneumococcal vaccine <65 Aged Out No longer eligible based on patient's age to complete this topic Insurance Advance Directives For more information, please contact: [phone] * Full Code (Latest Code Status on File) Date Activated Date Inactivated Comments 06/28/2022 10:22 PM 06/29/2022 8:04 PM Care Teams Vice President Quality Assurance Relationship Specialty Start Date End Date Matias Palacios MD PCP - General Internal Medicine 06/29/22
== END 2025-03-20 08:50 | disposition home or self-care (01) ==
LOC: CHSIMG 08:50
PROVIDERS: PCP Internal Medicine; Visit Provider Obstetrics & Gynecology
DX: N94.10 Unspecified dyspareunia (principal); R10.20 Pelvic and perineal pain unspecified side; D25.9 Leiomyoma of uterus, unspecified
CPT/HCPCS: 76830; 76856